=== PATIENT | male | born 1975 | race Hispanic/Latino ===

== ENCOUNTER 2021-12-12 11:56 | Emergency (ER) | payer SELFPAY ==
--- NOTE | 2021-12-12 14:42 | Emergency Department Report ---
ED Altered Mental Status HPI - General Chief Complaint: Weakness Stated Complaint: EXCESSIVE,SLEEPYNESS Time Seen by Provider: 12/12/21 13:20 Source: patient, EMS Mode of arrival: Ambulatory Limitations: No Limitations - History of Present Illness Initial Comments: 46-year-old male with a past medical history of hypertension, Raynaud's phenomenon, and recent NSTEMI diagnosis presents to the hospital with excessive sleepiness. Patient denies any pain. States he is sleepy because he has not been sleeping well. He also took his recently prescribed Percocet this a.m. and also takes gabapentin for renal phenomenon. As per [facility] i nstructions patient was admitted December 06 until December 09 with a diagnosis of NSTEMI. Follow-up with Dr. Prather vascular surgery recommended. Patient also had a diagnosis of bedbugs. He is prescribed aspirin 81 mg, gabapentin 300 mg, and Percocet 5/325 at discharge. He was instructed to stop taking Norvasc. Patient is a smoker but denies a history of COPD. States 6 months ago he was p laced on 2 L nasal cannula oxygen. He has since states that his pulse ox has been normal with hospital visits and therefore he no longer uses home oxygen. He denies history of sleep apnea or CPAP use - Related Data Allergies Allergy/AdvReac Type Severity Reaction Status Date / Time No Known Allergies Allergy Unverified 12/12/21 12:33 ED Review of Systems ROS: Stated complaint: EXCESSIVE,SLEEPYNESS Other details as noted in HPI Comment: All other systems reviewed and negative ED Physical Exam - General Limitations: No Limitations - Other Other exam information: General: Lethargic but aroused Head: Atraumatic Eyes: normal appearance ENT: Moist mucous membranes Neck: Normal appearance, no midline tenderness Chest: Clear to auscultation bilaterally CV: Regular rate and rhythm tachycardia regular rhythm Abdomen: Soft, normal bowel sounds, nontender, nondistended, no rebound or guarding Back: Normal inspection Extremity: Raynaud's noted to bilateral hands with some mild distal finger tip ischemia Neuro: Drowsy but arousable to voice. Oriented x3. No facial asymmetry, speech clear, no gross motor deficit Psych: Appropriate behavior Skin: Pale ED Course Vital Signs 12/12/21 12/12/21 12/12/21 11:56 13:57 14:01 Temperature 98.2 F Pulse Rate 113 H 101 H 102 H Respiratory 18 8 L 10 L Rate Blood Pressure 101/66 Blood Pressure 139/74 [Left] O2 Sat by Pulse 100 Oximetry 12/12/21 12/12/21 12/12/21 14:15 14:30 14:31 Temperature Pulse Rate 104 H 102 H Respiratory 18 35 H 12 Rate Blood Pressure 101/66 101/66 Blood Pressure [Left] O2 Sat by Pulse 98 Oximetry 12/12/21 12/12/21 12/12/21 14:45 15:01 15:15 Temperature Pulse Rate 97 H 88 102 H Respiratory 16 11 L 13 Rate Blood Pressure 101/66 101/66 105/66 Blood Pressure [Left] O2 Sat by Pulse 87 7 L Oximetry 12/12/21 12/12/21 12/12/21 15:31 15:45 16:01 Temperature Pulse Rate 88 83 82 Respiratory 48 H 23 23 Rate Blood Pressure 105/66 92/56 92/56 Blood Pressure [Left] O2 Sat by Pulse 100 Oximetry 12/12/21 12/12/21 12/12/21 16:15 16:31 16:45 Temperature Pulse Rate 79 85 Respiratory 31 H 34 H 13 Rate Blood Pressure 92/56 105/66 101/75 Blood Pressure [Left] O2 Sat by Pulse 100 98 97 Oximetry 12/12/21 12/12/21 12/12/21 17:01 17:15 17:31 Temperature Pulse Rate Respiratory 31 H 38 H 42 H Rate Blood Pressure 101/75 101/75 101/75 Blood Pressure [Left] O2 Sat by Pulse 100 84 99 Oximetry 12/12/21 12/12/21 12/12/21 17:45 18:01 18:15 Temperature Pulse Rate Respiratory 24 26 H 42 H Rate Blood Pressure 117/81 101/75 101/75 Blood Pressure [Left] O2 Sat by Pulse Oximetry 12/12/21 12/12/21 18:31 18:45 Temperature Pulse Rate Respiratory 27 H 13 Rate Blood Pressure 101/75 142/102 Blood Pressure [Left] O2 Sat by Pulse 100 Oximetry - Reevaluation(s) Reevaluation #1: 12/12/21 19:11 Patient is alert and oriented. Much improved compared to initial ER visit. I suspect that patient has improvement in CO2 retention. Initial "ABG" was actually a venous blood gas with a pH of 7.2. Venous pH has improved with mild with CO2 retention on repeat EKG at 4:40 PM. Patient has remained on BiPAP until this time and no longer wants to continue treatment and has improvement in mental status - Consultations Consultation #1: 12/12/21 19:11 Case discussed with on-call dietary internship Dr. aYn he recommends admission for ops given acute CO2 retention. - Lab Data Result diagrams: 12/12/21 14:59 12/12/21 14:59 Lab Results 12/12/21 12/12/21 12/12/21 Range/Units 14:00 14:59 14:59 WBC 9.7 (4.5-11.0) K/mm3 RBC 4.09 (3.65-5.03) M/mm3 Hgb 8.3 L (11.8-15.2) gm/dl Hct 28.7 L (35.5-45.6) % MCV 70 L (84-94) fl MCH 20 L (28-32) pg MCHC 29 L (32-34) % RDW 21.1 H (13.2-15.2) % Plt Count 477 H (140-440) K/mm3 Lymph % (Auto) 8.2 L (13.4-35.0) % [place] % (Auto) 7.1 (0.0-7.3) % Eos % (Auto) 0.1 (0.0-4.3) % Baso % (Auto) 0.5 (0.0-1.8) % Lymph # (Auto) 0.8 L (1.2-5.4) K/mm3 [place] # (Auto) 0.7 (0.0-0.8) K/mm3 Eos # (Auto) 0.0 (0.0-0.4) K/mm3 Baso # (Auto) 0.0 (0.0-0.1) K/mm3 Seg Neutrophils % 84.1 H (40.0-70.0) % Seg Neutrophils # 8.2 H (1.8-7.7) K/mm3 PT (12.2-14.9) Sec. INR (0.87-1.13) ABG pH 7.211 L (7.350-7.450) pH Units ABG pCO2 72.4 mm Hg ABG pO2 32.5 L* (80.0-90.0) mm Hg ABG HCO3 28.4 H (20.0-26.0) mmol/L ABG O2 Saturation 41.7 L (95.0-99.0) % ABG O2 Content 4.3 (0.0-44) ABG Base Excess 0.1 (-2.0-3.0) mmol/L ABG Hemoglobin 7.5 L (14.0-18.0) gm/dl ABG Carboxyhemoglobin 2.6 (0.0-5.0) % ABG Methemoglobin 0.9 (0.0-1.5) % Oxyhemoglobin 40.2 L (95.0-99.0) % FiO2 21 % Sodium 135 L (137-145) mmol/L Potassium 4.9 (3.6-5.0) mmol/L Chloride 95.8 L (98-107) mmol/L Carbon Dioxide 24 (22-30) mmol/L Anion Gap 20 mmol/L BUN 30 H (9-20) mg/dL Creatinine 1.2 (0.8-1.3) mg/dL Estimated GFR > 60 ml/min BUN/Creatinine Ratio 25 % Glucose 154 H (75-100) mg/dL Calcium 8.9 (8.4-10.2) mg/dL Total Bilirubin 0.30 (0.1-1.2) mg/dL AST 92 H (5-40) units/L ALT 39 (7-56) units/L Alkaline Phosphatase 110 (35-129) units/L Ammonia (25-60) umol/L Total Protein 7.5 (6.3-8.2) g/dL Albumin 3.8 L (3.9-5) g/dL Albumin/Globulin Ratio 1.0 % Urine Color (Yellow) Urine Turbidity (Clear) Specific [place] (Man) (1.003-1.030) Ur Protein (Man) (Negative) mg/dL Ur Ketones (Man) (Negative) Ur Nitrite (Man) (Negative) Ur Reducing Substances Urine Bilirubin (Man) (Negative) Urine Ictotest Leukocyte Esterase (Man) (Negative) Urine WBC (Auto) (0.0-6.0) /HPF Urine RBC (Auto) (0.0-6.0) /HPF U Epithel Cells (Auto) (0-13.0) /HPF Urine RBC (Manual) (Negative) Hyaline Casts /LPF Granular Casts /LPF Urine Mucus /HPF Salicylates (2.8-20.0) mg/dL Urine Opiates Screen Urine Methadone Screen Acetaminophen (10.0-30.0) ug/mL Ur Barbiturates Screen Ur Phencyclidine Scrn Ur Amphetamines Screen U Benzodiazepines Scrn Urine Cocaine Screen U Marijuana (THC) Screen Drugs of Abuse Note Plasma/Serum Alcohol (0-0.07) % 12/12/21 12/12/21 12/12/21 Range/Units 14:59 14:59 14:59 WBC (4.5-11.0) K/mm3 RBC (3.65-5.03) M/mm3 Hgb (11.8-15.2) gm/dl Hct (35.5-45.6) % MCV (84-94) fl MCH (28-32) pg MCHC (32-34) % RDW (13.2-15.2) % Plt Count (140-440) K/mm3 Lymph % (Auto) (13.4-35.0) % [place] % (Auto) (0.0-7.3) % Eos % (Auto) (0.0-4.3) % Baso % (Auto) (0.0-1.8) % Lymph # (Auto) (1.2-5.4) K/mm3 [place] # (Auto) (0.0-0.8) K/mm3 Eos # (Auto) (0.0-0.4) K/mm3 Baso # (Auto) (0.0-0.1) K/mm3 Seg Neutrophils % (40.0-70.0) % Seg Neutrophils # (1.8-7.7) K/mm3 PT (12.2-14.9) Sec. INR (0.87-1.13) ABG pH (7.350-7.450) pH Units ABG pCO2 mm Hg ABG pO2 (80.0-90.0) mm Hg ABG HCO3 (20.0-26.0) mmol/L ABG O2 Saturation (95.0-99.0) % ABG O2 Content (0.0-44) ABG Base Excess (-2.0-3.0) mmol/L ABG Hemoglobin (14.0-18.0) gm/dl ABG Carboxyhemoglobin (0.0-5.0) % ABG Methemoglobin (0.0-1.5) % Oxyhemoglobin (95.0-99.0) % FiO2 % Sodium (137-145) mmol/L Potassium (3.6-5.0) mmol/L Chloride (98-107) mmol/L Carbon Dioxide (22-30) mmol/L Anion Gap mmol/L BUN (9-20) mg/dL Creatinine (0.8-1.3) mg/dL Estimated GFR ml/min BUN/Creatinine Ratio % Glucose (75-100) mg/dL Calcium (8.4-10.2) mg/dL Total Bilirubin (0.1-1.2) mg/dL AST (5-40) units/L ALT (7-56) units/L Alkaline Phosphatase (35-129) units/L Ammonia 21.0 L (25-60) umol/L Total Protein (6.3-8.2) g/dL Albumin (3.9-5) g/dL Albumin/Globulin Ratio % Urine Color (Yellow) Urine Turbidity (Clear) Specific [place] (Man) (1.003-1.030) Ur Protein (Man) (Negative) mg/dL Ur Ketones (Man) (Negative) Ur Nitrite (Man) (Negative) Ur Reducing Substances Urine Bilirubin (Man) (Negative) Urine Ictotest Leukocyte Esterase (Man) (Negative) Urine WBC (Auto) (0.0-6.0) /HPF Urine RBC (Auto) (0.0-6.0) /HPF U Epithel Cells (Auto) (0-13.0) /HPF Urine RBC (Manual) (Negative) Hyaline Casts /LPF Granular Casts /LPF Urine Mucus /HPF Salicylates < 0.3 L (2.8-20.0) mg/dL Urine Opiates Screen Urine Methadone Screen Acetaminophen 5.0 L (10.0-30.0) ug/mL Ur Barbiturates Screen Ur Phencyclidine Scrn Ur Amphetamines Screen U Benzodiazepines Scrn Urine Cocaine Screen U Marijuana (THC) Screen Drugs of Abuse Note Plasma/Serum Alcohol (0-0.07) % 12/12/21 12/12/21 12/12/21 Range/Units 14:59 15:24 15:59 WBC (4.5-11.0) K/mm3 RBC (3.65-5.03) M/mm3 Hgb (11.8-15.2) gm/dl Hct (35.5-45.6) % MCV (84-94) fl MCH (28-32) pg MCHC (32-34) % RDW (13.2-15.2) % Plt Count (140-440) K/mm3 Lymph % (Auto) (13.4-35.0) % [place] % (Auto) (0.0-7.3) % Eos % (Auto) (0.0-4.3) % Baso % (Auto) (0.0-1.8) % Lymph # (Auto) (1.2-5.4) K/mm3 [place] # (Auto) (0.0-0.8) K/mm3 Eos # (Auto) (0.0-0.4) K/mm3 Baso # (Auto) (0.0-0.1) K/mm3 Seg Neutrophils % (40.0-70.0) % Seg Neutrophils # (1.8-7.7) K/mm3 PT 15.8 H (12.2-14.9) Sec. INR 1.10 (0.87-1.13) ABG pH (7.350-7.450) pH Units ABG pCO2 mm Hg ABG pO2 (80.0-90.0) mm Hg ABG HCO3 (20.0-26.0) mmol/L ABG O2 Saturation (95.0-99.0) % ABG O2 Content (0.0-44) ABG Base Excess (-2.0-3.0) mmol/L ABG Hemoglobin (14.0-18.0) gm/dl ABG Carboxyhemoglobin (0.0-5.0) % ABG Methemoglobin (0.0-1.5) % Oxyhemoglobin (95.0-99.0) % FiO2 % Sodium (137-145) mmol/L Potassium (3.6-5.0) mmol/L Chloride (98-107) mmol/L Carbon Dioxide (22-30) mmol/L Anion Gap mmol/L BUN (9-20) mg/dL Creatinine (0.8-1.3) mg/dL Estimated GFR ml/min BUN/Creatinine Ratio % Glucose (75-100) mg/dL Calcium (8.4-10.2) mg/dL Total Bilirubin (0.1-1.2) mg/dL AST (5-40) units/L ALT (7-56) units/L Alkaline Phosphatase (35-129) units/L Ammonia (25-60) umol/L Total Protein (6.3-8.2) g/dL Albumin (3.9-5) g/dL Albumin/Globulin Ratio % Urine Color Yellow (Yellow) Urine Turbidity Slightly cloudy (Clear) Specific [place] (Man) 1.030 (1.003-1.030) Ur Protein (Man) 1+ (Negative) mg/dL Ur Ketones (Man) Negative (Negative) Ur Nitrite (Man) Negative (Negative) Ur Reducing Substances Not Reportable Urine Bilirubin (Man) Negative (Negative) Urine Ictotest Not Reportable Leukocyte Esterase (Man) Negative (Negative) Urine WBC (Auto) 4.0 (0.0-6.0) /HPF Urine RBC (Auto) 2.0 (0.0-6.0) /HPF U Epithel Cells (Auto) 1.0 (0-13.0) /HPF Urine RBC (Manual) Negative (Negative) Hyaline Casts 31 /LPF Granular Casts 1 /LPF Urine Mucus 1+ /HPF Salicylates (2.8-20.0) mg/dL Urine Opiates Screen Urine Methadone Screen Acetaminophen (10.0-30.0) ug/mL Ur Barbiturates Screen Ur Phencyclidine Scrn Ur Amphetamines Screen U Benzodiazepines Scrn Urine Cocaine Screen U Marijuana (THC) Screen Drugs of Abuse Note Plasma/Serum Alcohol < 0.01 (0-0.07) % 12/12/21 12/12/21 Range/Units 15:59 16:40 WBC (4.5-11.0) K/mm3 RBC (3.65-5.03) M/mm3 Hgb (11.8-15.2) gm/dl Hct (35.5-45.6) % MCV (84-94) fl MCH (28-32) pg MCHC (32-34) % RDW (13.2-15.2) % Plt Count (140-440) K/mm3 Lymph % (Auto) (13.4-35.0) % [place] % (Auto) (0.0-7.3) % Eos % (Auto) (0.0-4.3) % Baso % (Auto) (0.0-1.8) % Lymph # (Auto) (1.2-5.4) K/mm3 [place] # (Auto) (0.0-0.8) K/mm3 Eos # (Auto) (0.0-0.4) K/mm3 Baso # (Auto) (0.0-0.1) K/mm3 Seg Neutrophils % (40.0-70.0) % Seg Neutrophils # (1.8-7.7) K/mm3 PT (12.2-14.9) Sec. INR (0.87-1.13) ABG pH 7.319 L (7.350-7.450) pH Units ABG pCO2 52.0 mm Hg ABG pO2 125.7 H (80.0-90.0) mm Hg ABG HCO3 26.1 H (20.0-26.0) mmol/L ABG O2 Saturation 98.2 (95.0-99.0) % ABG O2 Content 8.7 (0.0-44) ABG Base Excess 0.0 (-2.0-3.0) mmol/L ABG Hemoglobin 6.3 L (14.0-18.0) gm/dl ABG Carboxyhemoglobin 2.9 (0.0-5.0) % ABG Methemoglobin 0.5 (0.0-1.5) % Oxyhemoglobin 94.9 L (95.0-99.0) % FiO2 30 % Sodium (137-145) mmol/L Potassium (3.6-5.0) mmol/L Chloride (98-107) mmol/L Carbon Dioxide (22-30) mmol/L Anion Gap mmol/L BUN (9-20) mg/dL Creatinine (0.8-1.3) mg/dL Estimated GFR ml/min BUN/Creatinine Ratio % Glucose (75-100) mg/dL Calcium (8.4-10.2) mg/dL Total Bilirubin (0.1-1.2) mg/dL AST (5-40) units/L ALT (7-56) units/L Alkaline Phosphatase (35-129) units/L Ammonia (25-60) umol/L Total Protein (6.3-8.2) g/dL Albumin (3.9-5) g/dL Albumin/Globulin Ratio % Urine Color (Yellow) Urine Turbidity (Clear) Specific [place] (Man) (1.003-1.030) Ur Protein (Man) (Negative) mg/dL Ur Ketones (Man) (Negative) Ur Nitrite (Man) (Negative) Ur Reducing Substances Urine Bilirubin (Man) (Negative) Urine Ictotest Leukocyte Esterase (Man) (Negative) Urine WBC (Auto) (0.0-6.0) /HPF Urine RBC (Auto) (0.0-6.0) /HPF U Epithel Cells (Auto) (0-13.0) /HPF Urine RBC (Manual) (Negative) Hyaline Casts /LPF Granular Casts /LPF Urine Mucus /HPF Salicylates (2.8-20.0) mg/dL Urine Opiates Screen Negative Urine Methadone Screen Negative Acetaminophen (10.0-30.0) ug/mL Ur Barbiturates Screen Negative Ur Phencyclidine Scrn Negative Ur Amphetamines Screen Negative U Benzodiazepines Scrn Negative Urine Cocaine Screen Negative U Marijuana (THC) Screen Negative Drugs of Abuse Note Disclamer Plasma/Serum Alcohol (0-0.07) % - EKG Data -: EKG Interpreted by Me (Anterior septal and inferior infarct age- indeterminate) EKG shows normal: sinus rhythm, ST-T waves (No STEMI) Rate: normal When compared to previous EKG there are: previous EKG unavailable - Radiology Data Radiology results: report reviewed CHEST 1 VIEW INDICATION: ams, co2 retention. COMPARISON: None FINDINGS: SUPPORT DEVICES: None. HEART: Mild cardiomegaly. LUNGS/PLEURA: Mild interstitial edema. No consolidation or effusion. ADDITIONAL FINDINGS: None. IMPRESSION: 1. Cardiomegaly with mild edema. - Medical Decision Making 46-year-old male presents to the hospital with diminished mental status likely secondary to acute CO2 retention and respiratory acidosis. Patient had improvement in mental status during ED stay. Room air saturation 100%. Patient is alert and prefer to discontinue BiPAP treatment. Chest x-ray shows cardiomegaly with mild pulmonary edema. Patient denies dyspnea at this time. 1 dose of p.o. Lasix provided. Patient received IV fluids due to lack of IV access. Case discussed with dietary internship and admission observation recommended due to acute CO2 retention with unclear cause. Patient declines admission at this time prefers to go home. He will be signing out AGAINST MEDICAL ADVICE and was informed of the increased risk of disability or . He is encouraged to return if symptoms worsen pt state he has lasix at home. At time of disposition patient is alert and oriented x3 without any signs of mental status depression Critical Care Time: Yes Critical care time in (mins) excluding proc time.: 40 Critical care attestation.: If time is entered above; I have spent that time in minutes in the direct care of this critically ill patient, excluding procedure time. Critical Care Time: 40 Minutes of critical care time excluding procedures were used in the care of the patient. I came immediately to the bedside upon patient's arrival. I obtained history from EMS at the bedside. I discussed treatment plan with the nursing team members. I reviewed electronic record. I Patient required multiple interventions and reassessments. Pulmonology is consulted for collaborative care and recommendation ED Disposition Clinical Impression: Acute respiratory failure with hypercapnia, Altered mental status Disposition: 07 LEFT AGAINST MEDICAL ADVICE Is pt being admited?: No Does the pt Need Aspirin: No Condition: Stable Instructions: Acute Respiratory Failure, Adult Additional Instructions: You have signed out AGAINST MEDICAL ADVICE. Admission has been recommended. Follow-up with your doctor or doctor/clinic provided. Return if symptoms worsen as indicated by your discharge instructions. Referrals: PRIMARY MD DIYA [Primary Care Provider] - 3-5 Days RUBY YAN MD [Staff Physician] - 3-5 Days ([employer]st) Forms: AMA Form Time of Disposition: 19:53
[2021-12-12 14:46] LABS: ABG Base Excess 0.1 mmol/L (-2.0-3.0); ABG HCO3 28.4 mmol/L (20.0-26.0); ABG Methemoglobin 0.9 % (0.0-1.5); ABG Oxygen Saturation 41.7 % (95.0-99.0); ABG PCO2 72.4 mm Hg; ABG PH 7.211 pH Units (7.350-7.450)
[2021-12-12 15:08] LABS: ABG PO2 32.5 mm Hg (80.0-90.0)
[2021-12-12 15:27] LABS: Basophils % (Auto) 0.5 % (0.0-1.8); Eosinophils % (Auto) 0.1 % (0.0-4.3); Lymphocytes # (Auto) 0.8 K/mm3 (1.2-5.4); Lymphocytes % (Auto) 8.2 % (13.4-35.0); Mean Corpuscular HGB Conc 29 % (32-34); Mean Corpuscular Volume 70 fl (84-94); Monocytes # (Auto) 0.7 K/mm3 (0.0-0.8); Monocytes % (Auto) 7.1 % (0.0-7.3); Platelet Count 477 K/mm3 (140-440); Red Blood Count 4.09 M/mm3 (3.65-5.03)
[2021-12-12 15:29] LABS: Hematocrit 28.7 % (35.5-45.6); Hemoglobin 8.3 gm/dl (11.8-15.2); Red Cell Distribution Width 21.1 % (13.2-15.2)
[2021-12-12 15:38] LABS: Alanine Aminotransferase 39 units/L (7-56); Albumin 3.8 g/dL (3.9-5); BUN/Creatinine Ratio 25; Blood Urea Nitrogen 30 mg/dL (9-20); Calcium 8.9 mg/dL (8.4-10.2); Hemolysis Index 9
[2021-12-12 15:58] LABS: INR 1.1 (0.87-1.13)
[2021-12-12] MEDS ORDERED: SODIUM CHLORIDE 0.9% 1000 ML 1,000 ML IV ONE (16:18)
[2021-12-12 17:15] LABS: Granular Casts,Urine 1 /LPF; Hyaline Casts,Urine 31 /LPF; Mucus,Urine 1+ /HPF
[2021-12-12 17:20] LABS: Color,Urine Yellow (Yellow)
[2021-12-12 17:31] LABS: ABG HCO3 26.1 mmol/L (20.0-26.0); ABG Methemoglobin 0.5 % (0.0-1.5); ABG Oxygen Saturation 98.2 % (95.0-99.0); ABG PH 7.319 pH Units (7.350-7.450); ABG PO2 125.7 mm Hg (80.0-90.0)
[2021-12-12 17:55] LABS: Amphetamine Screen,Urine Negative; Benzodiazepines Screen,Urine Negative; Cannabinoid Screen,Urine Negative; Cocaine Screen,Urine Negative; Methadone Screen,Urine Negative; Opiate Screen,Urine Negative
--- NOTE | 2021-12-12 19:44 | XRay Report ---
CHEST 1 VIEW INDICATION: ams, co2 retention. COMPARISON: None FINDINGS: SUPPORT DEVICES: None. HEART: Mild cardiomegaly. LUNGS/PLEURA: Mild interstitial edema. No consolidation or effusion. ADDITIONAL FINDINGS: None. IMPRESSION: 1. Cardiomegaly with mild edema. Signer Name: Gustavo May MD Signed: 12/12/2021 7:40 PM Workstation Name: [id number]
[2021-12-12] MEDS ORDERED: FUROSEMIDE 20 MG TAB PO ONE (19:48)
[2021-12-12 21:22] VITALS: BP 128/95
--- NOTE | 2021-12-14 09:39 | Electrocardiograph Report ---
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
== END 2021-12-12 20:05 | disposition left against medical advice (07) ==
LOC: ED 11:56
DX: R41.82 Altered mental status, unspecified (principal); J96.02 Acute respiratory failure with hypercapnia
CPT/HCPCS: 36415; 71045; 80053; 80307; 80320; 81001; 82140; 82803; 85025; 85610; 93005; 99284; G0480